=== PATIENT | male | born 1970 | race Caucasian/White ===

== ENCOUNTER → 2017-03-13 | Outpatient (CLI) | payer BC ==
[~2017-03-13] MED LIST: LSN/10125 PO
--- NOTE | 2017-03-13 18:12 | DIAGNOSTIC IMAGING REPORT ---
KUB CLINICAL HISTORY: R31.9 Hematuria COMPARISON STUDY: 08/03/2016 FINDINGS: There is a cluster of calcifications projected over the lower pole the left kidney measuring 6 mm in aggregate. These remain similar to the prior study. There is no pathologic bowel dilatation. There is stool present within the rectosigmoid and right colon. IMPRESSION: Left-sided nephrolithiasis similar to the preceding July 2016 study Electronically signed by: Warner Fung M.D. 03/13/2017 6:10 PM Dictated Date/Time: 03/13/2017 6:09 PM
== END | disposition home or self-care (01) ==
LOC: C.RAD 17:50
PROVIDERS: ATTEND Urology
DX: R31.9 Hematuria, unspecified (principal); N20.0 Calculus of kidney

== ENCOUNTER → 2017-06-14 | Outpatient (CLI) | payer BC ==
[2017-06-14 09:52] LABS: BLOOD UREA NITROGEN 21 mg/dl (7-18); BUN/CREATININE RATIO 20.7 (10-20); CALCIUM 8.9 mg/dl (8.5-10.1); CARBON DIOXIDE 25 mmol/L (21-32); CHLORIDE 107 mmol/L (98-107); GLUCOSE 97 mg/dl (70-99); POTASSIUM 3.7 mmol/L (3.5-5.1); SODIUM 138 mmol/L (136-145)
== END | disposition home or self-care (01) ==
LOC: C.LAB 07:07
PROVIDERS: ATTEND Family Medicine
DX: I10 Essential (primary) hypertension (principal)

== ENCOUNTER → 2017-09-11 | Outpatient (CLI) | payer BC ==
--- NOTE | 2017-09-11 19:19 | DIAGNOSTIC IMAGING REPORT ---
KUB CLINICAL HISTORY: Nephrolithiasis. COMPARISON STUDY: CT of the abdomen and pelvis August 16, 2016 and KUB March 13, 2017 FINDINGS: Clustered calculi within lower pole of the left kidney measuring up to 7 mm are again noted. These have slightly increased in size since exam of March 13, 2017. No ureteral calculi are identified on this exam. No right renal calculi are identified although the right renal shadow is partially obscured by stool. IMPRESSION: 1. Slight increase in size of clustered calculi within the lower pole of the left kidney. 2. No ureteral calculi. Electronically signed by: Aman Petty M.D. 09/11/2017 7:18 PM Dictated Date/Time: 09/11/2017 7:16 PM
== END | disposition home or self-care (01) ==
LOC: C.RAD 17:34
PROVIDERS: ATTEND Nurse Practitioner Family
DX: N20.0 Calculus of kidney (principal)

== ENCOUNTER → 2017-10-25 | Outpatient (CLI) | payer BC ==
--- NOTE | 2017-10-25 17:59 | DIAGNOSTIC IMAGING REPORT ---
KUB CLINICAL HISTORY: URETERAL STONES nephrocalcinosis COMPARISON STUDY: 09/11/2017 FINDINGS: Fragmentation of the calcification lower aspect left kidney. At least 6 small fragments are now appreciated at the lower aspect left kidney. Right kidney is obscured by overlying bowel content. No significant calcification and or the course of the ureters. Bowel pattern is nonobstructive. IMPRESSION: 1. Somewhat progressive fragmentation of the calcifications lower pole left kidney. 2. No significant calcification over the course of the ureters. The above report was generated using voice recognition software. It may contain grammatical, syntax or spelling errors. Electronically signed by: Calixto Rutledge M.D. 10/25/2017 5:57 PM Dictated Date/Time: 10/25/2017 5:55 PM
== END | disposition home or self-care (01) ==
LOC: C.RAD 17:24
PROVIDERS: ATTEND Nurse Practitioner Adult Health
DX: N20.1 Calculus of ureter (principal)

== ENCOUNTER → 2017-10-25 | Outpatient (CLI) | payer BC ==
[2017-10-25 09:52] LABS: CHOLESTEROL/HDL RATIO 4.3
[2017-10-26 17:53] LABS: GAMMA GLOBULIN 1.1 G/DL (0.8-1.7); IMMUNOFIXATION IGA SERUM 202 MG/DL (81-463); IMMUNOFIXATION IGG SERUM 1268 MG/DL (694-1618); IMMUNOFIXATION IGM SERUM 79 MG/DL (48-271); TOTAL PROTEIN 6.8 G/DL (6.2-8.3)
== END | disposition home or self-care (01) ==
LOC: C.LAB 07:19
PROVIDERS: ATTEND Family Medicine
DX: E78.5 Hyperlipidemia, unspecified (principal); R79.9 Abnormal finding of blood chemistry, unspecified

== ENCOUNTER → 2017-11-07 | Outpatient (CLI) | payer BC ==
[~2017-11-07] MED LIST changes: +CALC625T35 PO; +HYDR-5688 PO; +MULT-506 PO; +PROB1TAB16 PO
--- NOTE | 2017-11-07 16:44 | DIAGNOSTIC IMAGING REPORT ---
CHEST 2 VIEWS ROUTINE CLINICAL HISTORY: Preoperative evaluation. Nephrolithiasis. COMPARISON STUDY: Chest radiograph August 20, 2015. FINDINGS: Lung volumes are normal. No pneumothorax or pleural effusion is present. Pulmonary vascularity is normal. No consolidation is identified. Cardiomediastinal silhouette is normal. The appearance of the chest is unchanged. IMPRESSION: No acute cardiopulmonary findings. Electronically signed by: Aman Petty M.D. 11/07/2017 4:43 PM Dictated Date/Time: 11/07/2017 4:41 PM
== END | disposition home or self-care (01) ==
LOC: C.CPL 16:12
PROVIDERS: ATTEND Urology
DX: N20.0 Calculus of kidney (principal)

== ENCOUNTER → 2017-11-07 | Outpatient (CLI) | payer BC | END | disposition home or self-care (01) | LOC: C.LABSPEC 17:14 | PROVIDERS: ATTEND Urology | DX: N20.0 Calculus of kidney (principal) ==

== ENCOUNTER → 2017-11-10 | Day surgery (SDC) | payer BC ==
[2017-11-09 08:49] VITALS: Ht 180.3 cm; Wt 93.2 kg
[~2017-11-10] VITALS: Ht 180.3 cm; Wt 93.2 kg
[~2017-11-10] MED LIST changes: +CIPROFLOXACIN 400MG / D5W IV SCH; +DEXAMETHASONE SOD INJ 4 MG/ML VIAL ONE; +FENTANYL CITRATE INJ 50 MCG/1 ML 2 ML VIAL ONE; +LACTATED RINGER'S 1000ML 1,000 ML IV SCH; +LIDOCAINE HCL 2% 2 ML VIAL (20MG/ML) ONE; +MIDAZOLAM HCL 1 MG/ML 2ML VIAL ONE; +ONDANSETRON INJ 2 MG/ML 2 ML VIAL ONE; +OXYCODONE/ACETAMINOPHEN 5-325 TAB PO PRN; +PROPOFOL IV EMULSION 10 MG/ML 20 ML VIAL IV ONE; +SODIUM CHLORIDE 0.9% 1000ML 1,000 ML IV SCH
--- NOTE | 2017-11-10 09:30 | DIAGNOSTIC IMAGING REPORT ---
KUB HISTORY: Follow-up study in a patient with left-sided nephrolithiasis N20.0 [id number] COMPARISON: KUB 10/25/2017 FINDINGS: The bowel gas pattern is non-obstructive. There is no organomegaly. Left-sided nephrolithiasis redemonstrated with approximately 5 calculi seen within the distribution of the left kidney. Previously, there was a cluster of approximately 6 calculi in a focal cluster and today there are 4 calculi seen within this distribution with a single calculus noted superolaterally approximately 1.6 cm. No definite right-sided nephrolithiasis or ureteral calculi. No pneumoperitoneum or pneumatosis. No fracture. IMPRESSION: Left-sided nephrolithiasis as above without ureteral calculi or right-sided nephrolithiasis identified. Electronically signed by: Arturo Lopez M.D. 11/10/2017 9:29 AM Dictated Date/Time: 11/10/2017 9:25 AM
--- NOTE | 2017-11-10 10:30 | History & Physical Bridge Note ---
H&P Re-Evaluation Bridge Note: I have examined the patient, reviewed the History & Physical and in the interval since the performance of the History & Physical I have noted the following changes of clinical significance: No changes noted
--- NOTE | 2017-11-10 11:10 | Discharge Instructions-SurgCtr ---
Discharge Instructions Date of Service Nov 10, 2017. Visit Reason for Visit: Stones Discharge Discharge Diagnosis / Problem: stones Discharge Goals Goal(s): Decrease discomfort, Improve function, Increase independence, Improve disease control Medications Stopped Medications Name(s): Pt. was told not to take his Lisinopril this a.m.. Activity Recommendations Activity Limitations: resume your previous activity Lifting Limitations: none Exercise/Sports Limitations: none May Resume Sexual Activity: when tolerated Shower/Bathe: no limitations Driving or Machine Use: no limitations Anesthesia . Post Anesthesia Instructions: If you have had General Anesthesia or IV Sedation: * Do not drive today. * Resume driving when surgeon permits. * Do not make important decisions or sign legal documents today. * Call surgeon for: 1. Temperature elevations greater than 101 degrees F. 2. Uncontrollable pain. 3. Excessive bleeding. 4. Persistent nausea and vomiting. 5. Medication intolerance (nausea, vomiting or rash). * For nausea and vomiting use only clear liquids such as: tea, soda, bouillon until nausea subsides, then gradually increase diet as tolerated. * If you have any concerns or questions, call your surgeon's office. If physician is unavailable and it is an emergency, call 911 or go to the nearest emergency room. . Instructions / Follow-Up Instructions / Follow-Up please keep your previously scheduled follow up appointment Diet Recommendations Home Diet: no limitations Procedures Procedures Performed: Left Extracorporeal Shock Wave Lithotripsy Pending Studies Studies pending at discharge: no Medical Emergencies . Who to Call and When: Medical Emergencies: If at any time you feel your situation is an emergency, please call 911 immediately. . Non-Emergent Contact Non-Emergency issues call your: Urologist Call Non-Emergent contact if: you have a fever, temperature is above 101.5, your pain is not controlled, your pain is worsening . . "Provider Documentation" section prepared by Josh Parkinson. . [place] Drug Monitoring Program Search Results: patient reviewed within database, no issues identified
--- NOTE | 2017-11-10 11:11 | [facility] Operative Report ---
Operative Report Operative Date Nov 10, 2017. Pre-Operative Diagnosis Left Renal Stones Post-Operative Diagnosis Same Procedure(s) Performed Left Extracorporeal Shock Wave Lithotripsy Surgeon Dr. Mona Cheek Mining Technician Surgeon(s) None Estimated Blood Loss 0 mL Findings Numerous stones in the left lower pole other stones in the renal pelvis and midpole Specimens None Drains none Anesthesia Gen. Complication(s) None Disposition Recovery Room / PACU (stable) Indications Symptomatic left renal stones Description of Procedure The patient was identified in the preoperative holding area, appropriate informed consent was reviewed and completed and the patient was transported to the operating suite. Upon arrival appropriate preoperative antibiotics were administered and general anesthesia induced. The patient was placed in supine position and the stone was localized under fluoroscopy. A total of 2500 shocks were delivered to the stone. There appeared to be good fragmentation of the stone. Details of this procedure can be found on the [facility] information sheet. At the conclusion of the case the patient was extubated and taken to the PACU in stable condition. There were no complications. I attest to the content of the Intraoperative Record and any orders documented therein. Any exceptions are noted below.
[2017-11-10 12:03] VITALS: TEMP 36.7
[2017-11-10 12:31] VITALS: BP 157/114; PULSE 69; O2SAT 100
--- NOTE | 2017-11-10 12:46 | Anesthesia Progress Nt - [facility] ---
Anesthesia Post Op Note Date & Time Nov 10, 2017 at 12:46 Vital Signs Pain Intensity: 0 Vital Signs Past 12 Hours Date Time Temp Pulse Resp B/P (MAP) Pulse Ox O2 Delivery O2 Flow Rate FiO2 11/10/17 12:31 69 18 157/114 (128) 100 Room Air 11/10/17 12:03 36.7 73 18 159/105 (123) 100 Room Air 11/10/17 11:56 145/101 11/10/17 11:55 146/103 11/10/17 11:52 77 16 98 11/10/17 11:52 75 16 11/10/17 11:51 149/102 11/10/17 11:50 78 25 11/10/17 11:50 78 25 98 11/10/17 11:47 130/96 11/10/17 11:46 143/104 11/10/17 11:45 69 24 11/10/17 11:45 68 24 98 11/10/17 11:43 36.6 68 16 30/88 99 Room Air 11/10/17 11:41 130/88 11/10/17 11:40 72 30 11/10/17 11:40 71 30 98 11/10/17 11:36 139/96 11/10/17 11:35 70 22 11/10/17 11:35 70 22 98 11/10/17 11:31 130/95 11/10/17 11:30 73 17 99 11/10/17 11:30 74 17 11/10/17 11:26 115/81 11/10/17 11:25 36.7 74 16 115/81 99 Mask 8 11/10/17 11:25 81 19 98 11/10/17 11:25 80 19 11/10/17 09:46 36.5 83 20 157/98 (117) 98 Room Air Notes Mental Status: alert / awake / arousable, participated in evaluation Pt Amnestic to Procedure: Yes Nausea / Vomiting: adequately controlled Pain: adequately controlled Airway Patency, RR, SpO2: stable & adequate BP & HR: stable & adequate Hydration State: stable & adequate Anesthetic Complications: no major complications apparent
== END | disposition home or self-care (01) ==
LOC: X.SURG 09:05
PROVIDERS: ATTEND Urology
DX: N20.0 Calculus of kidney (principal); I10 Essential (primary) hypertension; E78.5 Hyperlipidemia, unspecified; Z98.49 Cataract extraction status, unspecified eye; Z98.890 Other specified postprocedural states; Z82.49 Family history of ischemic heart disease and other diseases of the circulatory system; Z80.42 Family history of malignant neoplasm of prostate

== ENCOUNTER → 2017-12-04 | Outpatient (CLI) | payer OTHER ==
[~2017-12-04] MED LIST changes: -CIPROFLOXACIN 400MG / D5W IV SCH; -DEXAMETHASONE SOD INJ 4 MG/ML VIAL ONE; -FENTANYL CITRATE INJ 50 MCG/1 ML 2 ML VIAL ONE; -LACTATED RINGER'S 1000ML 1,000 ML IV SCH; -LIDOCAINE HCL 2% 2 ML VIAL (20MG/ML) ONE; -MIDAZOLAM HCL 1 MG/ML 2ML VIAL ONE; -ONDANSETRON INJ 2 MG/ML 2 ML VIAL ONE; -OXYCODONE/ACETAMINOPHEN 5-325 TAB PO PRN; -PROPOFOL IV EMULSION 10 MG/ML 20 ML VIAL IV ONE; -SODIUM CHLORIDE 0.9% 1000ML 1,000 ML IV SCH
--- NOTE | 2017-12-04 18:59 | DIAGNOSTIC IMAGING REPORT ---
KUB CLINICAL HISTORY: Nephrolithiasis. FINDINGS: 2 AP supine abdominal radiographs are compared to study dated 11/10/2017 and correlated with abdominal CT dated 08/16/2016. There is a nonobstructed abdominal bowel gas pattern noting moderate colonic fecal retention. There are least 4 nonobstructing left renal calculi which measure up to 4 mm. A calcification projects over the left proximal ureter just above the transverse process of L3. This may represent a ureteral stone. No right renal calculi are clearly identified. The bony structures appear intact. IMPRESSION: 1. There are least 4 nonobstructing left renal calculi as above. 2. Suspect an obstructing left proximal ureteral stone. Correlate clinically for evidence of left flank pain. Electronically signed by: Mihai Rivera M.D. 12/04/2017 6:58 PM Dictated Date/Time: 12/04/2017 6:56 PM
== END | disposition home or self-care (01) ==
LOC: C.RAD 17:47
PROVIDERS: ATTEND Urology
DX: N20.0 Calculus of kidney (principal)

== ENCOUNTER → 2018-03-12 | Outpatient (CLI) | payer OTHER ==
--- NOTE | 2018-03-12 18:24 | DIAGNOSTIC IMAGING REPORT ---
KUB HISTORY: Follow-up study in a patient with left-sided kidney stones Z00.00 Health Maintenance COMPARISON: KUB 12/04/2017 FINDINGS: The bowel gas pattern is non-obstructive. There is no organomegaly. On prior study there were 4 nonobstructing calculi projecting over the inferior pole left kidney. On today's study there are only 3 present. Additionally, there is a 4 mm calculus within the expected location of the proximal left ureter between the L2 and L3 transverse processes. A calcification is also seen within this region on comparison study. No pneumoperitoneum or pneumatosis. No fracture. IMPRESSION: 1. Nonobstructive bowel gas pattern. 2. On prior study there were four nonobstructing calculi projecting over the inferior pole left kidney. On today's study there are only three present. Additionally, there is a 4 mm calcification within the expected location of the proximal left ureter suggesting ureteral calculus. Electronically signed by: Arturo Lopez M.D. 03/12/2018 6:22 PM Dictated Date/Time: 03/12/2018 6:20 PM
== END | disposition home or self-care (01) ==
LOC: C.RAD 17:32
PROVIDERS: ATTEND Urology
DX: Z00.00 Encounter for general adult medical examination without abnormal findings (principal); N20.0 Calculus of kidney

== ENCOUNTER 2018-10-06 20:39 | Inpatient (IN) ==
[2018-10-06] MEDS ORDERED: KETOROLAC TROMETHAMINE 15 MG/ML VIAL IV STA (20:51)
[2018-10-06] MEDS ORDERED: ONDANSETRON 4 MG TAB PO STA (20:51)
[2018-10-06] MEDS ORDERED: FAMOTIDINE 20MG/5ML IV PUSH IV STA (20:51)
[2018-10-06] MEDS ORDERED: MoRPHine SULFATE 4 MG/ML 1 ML CARP\\VIAL IV STA (20:51)
[2018-10-06] MEDS ORDERED: ONDANSETRON 4 MG OD TAB ONE (20:56)
[2018-10-06] MEDS ORDERED: SODIUM CHLORIDE 0.9% 1000ML 1,000 ML IV SCH ×2 (21:00→22:00)
[2018-10-06 21:20] LABS: Basophils # (auto) 0.01 K/uL (0-0.2); Basophils % (auto) 0.1 %; Eosinophils # (auto) 0.08 K/uL (0-0.5); Eosinophils % (auto) 0.6 %; Hematocrit (blood only) 40.8 % (42-52); Hemoglobin 14.2 g/dL (14.0-18.0); Immature Granulocytes # (auto) 0.04 K/uL (0.00-0.02); Immature Granulocytes % (auto) 0.3 %; Lymphocytes # (auto) 1.64 K/uL (1.2-3.4); Lymphocytes % (auto) 13.1 %; Mean Corpuscular Hgb Conc 34.8 g/dL (32-36); Mean Corpuscular Volume 82.9 fL (80-100); Monocytes # (auto) 0.99 K/uL (0.11-0.59); Monocytes % (auto) 7.9 %; Neutrophils # (auto) 9.78 K/uL (1.4-6.5); Platelet Count 245 K/uL (130-400); Red Blood Count 4.92 M/uL (4.7-6.1); White Blood Count 12.54 K/uL (4.8-10.8)
[2018-10-06 21:21] LABS: Appearance Urine Clear (Clear); Bacteria Urine Automated Negative (Negative); Bilirubin Urine Negative (Negative); Cast Urine Automated 0 /lpf (0-5); Color Urine Yellow; Epithelial Cell Urine Auto 0-5 /lpf (0-5); Glucose Urine UA Negative (Negative); Ketones Urine Trace (Negative); Leukocyte Esterase Urine Negative (Negative); Nitrite Urine Negative (Negative); Protein Urine Negative (Negative); Specific Gravity Urine 1.027 (1.000-1.030); Urobilinogen Urine Negative (Negative)
[2018-10-06 21:37] LABS: Alanine Aminotransferase 25 U/L (12-78); Albumin Level 4.1 gm/dl (3.4-5.0); Aspartate Aminotransferase 14 U/L (15-37); Blood Urea Nitrogen 22 mg/dl (7-18); Calcium 9.1 mg/dl (8.5-10.1); Carbon Dioxide 24 mmol/L (21-32); Chloride 101 mmol/L (98-107); Est GFR (African American) 44.1; Est GFR (Non-African American) 38.1; Glucose 121 mg/dl (70-99); Potassium 3.4 mmol/L (3.5-5.1); Sodium 135 mmol/L (136-145)
[2018-10-06 21:45] LABS: Alkaline Phosphatase 62 U/L (45-117); Bilirubin,Total 1.1 mg/dl (0.1-1); Globulin 4.1 gm/dl (2.5-4.0); Total Protein 8.2 gm/dl (6.4-8.2); Troponin I < 0.015 ng/ml (0-0.045)
--- NOTE | 2018-10-06 22:24 | Emergency Department Note ---
Entered by Candelaria Hallman acting as a scribe for History of Present Illness General Chief complaint: Kidney Stone Stated complaint: KIDNEY STONES Time Seen by Provider: 10/06/18 20:46 Source: patient and family () Mode of arrival: ambulatory Limitations: no limitations History of Present Illness Provider complaint: Kidney stone Onset (ago): day(s) 2 Location: abdomen (left flank) and hip (left) Radiation: non-radiation Pain Consistency: + other (worsening) Maximum Pain Intensity: 4 Quality: + other (kidney stone) Relieved By: + none Associated symptoms: + nausea/vomiting and + other (Additional symptoms: left hip pain) The patient is a 47 year old male who presents to the Emergency Room with complaints of worsening kidney stones starting 2 days ago. The patient reports that he was in the ER 2 days ago when he was diagnosed with 3 kidney stones in his left kidney. He states that he was given pain medication and Toradol, among other treatments, and he notes that they helped to alleviate his pain. The patient reports that he was sent home with Oxycodone and Zofran, but that he has been nauseous and vomiting since, so he has stopped taking the Oxycodone and has been taking Tylenol instead. He notes that his pain is located on his left hip and that he has not been eating or drinking secondary to his nausea. Per , the patient's temperature has also slowly been increasing, and his latest temperature was 98.34. The patient notes that he spoke to Dr. Cheek about his symptoms this afternoon and was told to report to the ED if his symptoms do not improve. He reports that he had to have a kidney stone removed many years ago, and he denies a family history of kidney stones. Home Medications Home Medications Medication Instructions Recorded Confirmed Type Fish Oil Gummies 1 tab PO DAILY 10/04/18 10/06/18 History Lactobacillus acidophilus 2 tabs PO DAILY 10/04/18 10/06/18 History [Probiotic] inulin [Fiber Gummies] 4 g PO DAILY 10/04/18 10/06/18 History lisinopril-hydrochlorothiazide 0.5 tab PO DAILY 10/04/18 10/06/18 History multivitamin 1 tab PO DAILY 10/04/18 10/06/18 History acetaminophen [Tylenol Extra 1,000 mg PO Q6H PRN 10/06/18 10/06/18 History Strength] ondansetron HCl [Zofran] 4 mg PO QID PRN 10/06/18 10/06/18 History Allergies Allergy/AdvReac Type Severity Reaction Status Date / Time No Known Allergies Allergy Verified 10/06/18 21:28 Past Med/Surg History Family History Other Hypertension Social History current occupational status: employed Feels Safe at Home: Yes Smoking Status: Never smoker Preferred Language: Albanian Review of Systems See HPI for pertinent positives & negatives. and A total of 10 systems reviewed and were otherwise negative Physical Exam Vital Signs Vital Signs - 24 hr 10/06/18 20:41 Temperature 37.0 C Temperature Source Oral Sepsis Recent Fever Within 48 Hours No Sepsis Action Taken by Nursing No Action Required Pulse Rate 83 Respiratory Rate 18 Respiratory Effort / Characteristics Non-Labored Spontaneous Respiratory Depth Normal Blood Pressure 161/97 H Blood Pressure Mean 118 Pulse Oximetry 98 Oxygen Delivery Method Room Air GENERAL: Awake, alert, well-appearing, in no distress HENT: Normocephalic, atraumatic. Dry lips. EYES: Normal conjunctiva. Sclera non-icteric. NECK: Supple. No nuchal rigidity. Trachea midline RESPIRATORY: Clear to auscultation. No wheezes. Normal respiratory effort. CARDIAC: Normal rate. Normal rhythm. Extremities warm and well perfused. GI: Soft, non-distended. No tenderness to palpation. No rebound or guarding. No masses. RECTAL: Deferred. MUSCULOSKELETAL: Atraumatic. Chest examination reveals no tenderness. Mild left flank tenderness. LOWER EXTREMITIES: Calves are equal size bilaterally and non-tender. No edema NEURO: Normal sensorium. No sensory or motor deficits noted. No facial droop. SKIN: Warm and dry. No rash or jaundice noted. Course 2046: Past medical records reviewed. The patient was evaluated in room A2, and a complete history and physical examination were performed. 2146: I updated the patient at this time and paged urology for him. 2149: I reviewed the patient's case with Dr. Cheek - Urology, [facility]. Dr. Cheek recommends admission and NPO at midnight. 2151: I reviewed the patient's case with Dr. Mccarthy - Hospitalist, [facility]. Dr. Mccarthy will evaluate the patient for further management. Consultations Consultation #1: I reviewed the patient's case with Dr. Cheek - Urology, [facility]. Dr. Cheek recommends admission and NPO at midnight. Time: 21:50 Consultation #2: I reviewed the patient's case with Dr. Mccarthy - Hospitalist, [facility]. Dr. Mccarthy will evaluate the patient for further management. Time: 21:52 Administered Medications Discontinued Medications Famotidine (Pepcid 20mg Iv Push) 20 mg IV ONE STA Stop: 10/06/18 20:52 Last Admin: 10/06/18 21:04 Dose: 20 mg Sodium Chloride (Nss 1000ml) 1,000 mls @ 999 mls/hr IV .Q1H1M [place] Stop: 10/06/18 22:00 Last Infusion: 10/06/18 22:17 Dose: 0 mls/hr Admin: 10/06/18 21:04 Dose: 999 mls/hr Ketorolac Tromethamine (Toradol) 15 mg IV NOW STA Stop: 10/06/18 20:52 Last Admin: 10/06/18 21:04 Dose: 15 mg Morphine Sulfate (Morphine Sulfate) 4 mg IV NOW STA Stop: 10/06/18 20:52 Last Admin: 10/06/18 21:04 Dose: 4 mg Ondansetron HCl (Zofran) 4 mg PO NOW STA Stop: 10/06/18 20:52 Last Admin: 10/06/18 21:05 Dose: Not Given Ondansetron HCl (Zofran Odt) Confirm Administered Dose 4 mg .ROUTE .STK-MED ONE Stop: 10/06/18 20:57 Last Admin: 10/06/18 21:04 Dose: 4 mg 2200: Ordered Sodium Chloride 1000 mls @ 125 mls/hr IV. Medical Decision Making Differential Diagnosis Differential diagnosis: Etiologies such as appendicitis, diverticulitis, PUD, biliary pathology, UTI, pancreatitis, obstruction, mesenteric ischemia, aortic pathology, infections, inflammatory bowel disease, renal colic, as well as others were entertained. Medical Records Attestation: I reviewed the patient's medical records. Home Medications Current Medication List: was personally reviewed by me Laboratory Data Attestation: I reviewed the patient's lab results. Result diagrams: 10/06/18 21:00 10/06/18 21:00 Lab Results 10/06/18 10/06/18 10/06/18 Range/Units 21:00 21:00 21:00 WBC 12.54 H (4.8-10.8) K/uL RBC 4.92 (4.7-6.1) M/uL Hgb 14.2 (14.0-18.0) g/dL Hct 40.8 L (42-52) % MCV 82.9 (80-100) fL MCH 28.9 (25-34) pg MCHC 34.8 (32-36) g/dL RDW Std Deviation 39.0 (36.4-46.3) fL RDW Coeff of Alley 13.0 (11.5-14.5) % Plt Count 245 (130-400) K/uL MPV 10.0 (7.4-10.4) fL Immature Gran % (Auto) 0.3 % Neut % (Auto) 78.0 % Lymph % (Auto) 13.1 % [place] % (Auto) 7.9 % Eos % (Auto) 0.6 % Baso % (Auto) 0.1 % Immature Gran # (Auto) 0.04 H (0.00-0.02) K/uL Neut # (Auto) 9.78 H (1.4-6.5) K/uL Lymph # (Auto) 1.64 (1.2-3.4) K/uL [place] # (Auto) 0.99 H (0.11-0.59) K/uL Eos # (Auto) 0.08 (0-0.5) K/uL Baso # (Auto) 0.01 (0-0.2) K/uL Sodium 135 L (136-145) mmol/L Potassium 3.4 L (3.5-5.1) mmol/L Chloride 101 (98-107) mmol/L Carbon Dioxide 24 (21-32) mmol/L Anion Gap 10.0 (3-11) BUN 22 H (7-18) mg/dl Creatinine 2.00 H D (0.6-1.4) mg/dl Est Cr Clr Drug Dosing 53.0 ml/min Est GFR ( Amer) 44.1 Est GFR (Non-Af Amer) 38.1 BUN/Creatinine Ratio 11.0 (10-20) Glucose 121 H (70-99) mg/dl Calcium 9.1 (8.5-10.1) mg/dl Total Bilirubin 1.1 H D (0.1-1) mg/dl AST 14 L (15-37) U/L ALT 25 (12-78) U/L Alkaline Phosphatase 62 (45-117) U/L Troponin I < 0.015 (0-0.045) ng/ml Total Protein 8.2 (6.4-8.2) gm/dl Albumin 4.1 (3.4-5.0) gm/dl Globulin 4.1 H (2.5-4.0) gm/dl Albumin/Globulin Ratio 1.0 (0.9-2) Lipase 132 (73-393) U/L Urine Color Yellow Urine Appearance Clear (Clear) Urine pH 5.0 (4.5-7.5) Ur Specific [place] 1.027 (1.000-1.030) Urine Protein Negative (Negative) Urine Glucose (UA) Negative (Negative) Urine Ketones Trace H (Negative) Urine Blood 2+ H (Negative) Urine Nitrite Negative (Negative) Urine Bilirubin Negative (Negative) Urine Urobilinogen Negative (Negative) Ur Leukocyte Esterase Negative (Negative) Urine WBC (Auto) 1-5 (0-5) /hpf Urine RBC (Auto) 5-10 H (0-4) /hpf U Hyaline Cast (Auto) 0 (0-5) /lpf U Epithel Cells (Auto) 0-5 (0-5) /lpf Urine Bacteria (Auto) Negative (Negative) ECG Data Attestation: I personally reviewed and interpreted this ECG as follows: Indication: other (kidney stone) Rate (beats per minute): 78 Rhythm: normal sinus Findings: + other (normal axis, normal intervals, nonspecific aVL T wave change) ; no PVC, no ST depression and no ST elevation Comparison ECG Date: from (11/07/17) Change: no significant change Blood Pressure Blood Pressure Findings: Elevated blood pressure Blood Pressure Disposition: elevated BP felt to be situational MDM Narrative 47-year-old gentleman with history of kidney stone seen here several days ago with 3 left ureteral kidney stones presenting today complaining of worsening pain with significant nausea and vomiting. No new trauma. Has been in contact with urology. States the pain medicine at home is been very nauseous and unable to keep down the oxycodone. Is been using some Tylenol with minimal help. Feels that he is getting dehydrated. Basic labs are completed. No evidence of UTI. Creatinine has increased concerning given his decreased oral intake and kidney stones. Recent CT and do not believe additional repeat imaging is needed. Doubt perforation obstruction appendicitis cholecystitis, hepatitis, or pancreatitis. Did complete a EKG and troponin without acute findings. Patient medicated with morphine, Zofran, IV fluid, Pepcid, and Toradol here. Had some improvement but creatinine does appear to be elevated at 2.0 today. No evidence of UTI. Discussed with urology who recommended admission n.p.o. at midnight and they will intervene tomorrow on his kidney stones. Discussed with the hospitalist for admission. Patient agrees with this plan. Impression & Plan Left nephrolithiasis, Acute kidney injury Discharge Plan Visit Data Chief Complaint: Kidney Stone Stated Complaint: KIDNEY STONES ED Provider: Alexandre Farrell Discharge Problem: Left nephrolithiasis, Acute kidney injury Patient Disposition: Admitted As Inpatient Forms Stand Alone Forms: My [facility] Prescriptions Prescriptions: No Action multivitamin Tablet 1 tab PO DAILY RF: 0 lisinopril-hydrochlorothiazide 10-12.5 mg Tablet 0.5 tab PO DAILY RF: 0 Lactobacillus acidophilus [Probiotic] 10 billion cell Capsule 2 tabs PO DAILY RF: 0 inulin [Fiber Gummies] 2 gram Tablet,Chewable 4 g PO DAILY RF: 0 Fish Oil Gummies 1 tab PO DAILY RF: 0 ondansetron HCl [Zofran] 4 mg Tablet 4 mg PO QID PRN (Reason: Nausea) RF: 0 acetaminophen [Tylenol Extra Strength] 500 mg Tablet 1,000 mg PO Q6H PRN (Reason: Pain) RF: 0 Referrals Referrals: Yung Mckinley DO [Primary Care Provider] - The scribe's documentation has been prepared under my direction and personally reviewed by me in its entirety. I confirm that the note above accurately reflects all work, treatment, procedures, and medical decision making performed by me.
[2018-10-06] MEDS ORDERED: DOCUSATE SODIUM 100 MG CAP PO PRN (23:09)
[2018-10-06] MEDS ORDERED: POLYETHYLENE (MIRALAX) 17 GM PACK PO PRN (23:09)
[2018-10-06] MEDS ORDERED: ONDANSETRON INJ 2 MG/ML 2 ML VIAL IV PRN (23:09)
[2018-10-06] MEDS ORDERED: HYDROmorphone INJ 1 MG/ML SYRINGE IV PRN (23:09)
[2018-10-06] MEDS: SODIUM CHLORIDE 0.9% 500 ML IV SCH (23:15)
[2018-10-06 23:32] LABS: Magnesium 2.3 mg/dl (1.8-2.4); Phosphorus 2.5 mg/dl (2.5-4.9)
[2018-10-07] MEDS ORDERED: HydrALAZINE HCL 20 MG/ML VIAL IV PRN (00:48)
--- NOTE | 2018-10-07 01:05 | History & Physical Report ---
Date of Service October 06, 2018 Assessment & Plan (1) Left nephrolithiasis: Admit to medical floor. Patient with mild increase in Cr to 2 (from 1.69 from 1.05) * Strain urine * Pain control with Dilaudid PRN * Nausea control with Zofran PRN * IVF * Urology consultation - appreciate assistance with this case * Patient is NPO after midnight for possible intervention in AM * Monitor BUN, Cr and electrolytes * Monitor UOP (2) HTN (hypertension): Blood pressure elevated at present. * Hold Lisinopril/HCTZ in setting of mild MERLIN * Hydralazine PRN F/E/N - NSS at 125mL/hr x 2 liters Monitor electrolytes and replete as needed. NPO for now Ppx - low risk for DVT. Code - FUll Dispo - admit to medical floor History of Present Illness Chief Complaint: abdominal pain Primary Care Provider: Yung Mckinley DO Patient is a 47yo C male with history of HTN, prior renal stones presenting with left sided abdominal pain and ureteral calculi. Patient was seen in the ER 2 nights ago with abdominal pain. CT was done at that time that showed moderate left sided hydroureteronephrosis secondary to three left ureteral calculi, largest of which was 6mm. He was given oxycodone and discharged home with plans to followup with Urology. Patient with worsening pain, nausea and some decreased UOP. He contacted Dr. Cheek and was instructed to come to the ER ER Course: Pepcid, Toradol, Morphine, Zofran , IVF Allergies Allergy/AdvReac Type Severity Reaction Status Date / Time No Known Allergies Allergy Verified 10/06/18 21:28 Home Medications Home Medications Medication Instructions Recorded Confirmed Type Fish Oil Gummies 1 tab PO DAILY 10/04/18 10/06/18 History Lactobacillus acidophilus 2 tabs PO DAILY 10/04/18 10/06/18 History [Probiotic] inulin [Fiber Gummies] 4 g PO DAILY 10/04/18 10/06/18 History lisinopril-hydrochlorothiazide 0.5 tab PO DAILY 10/04/18 10/06/18 History multivitamin 1 tab PO DAILY 10/04/18 10/06/18 History acetaminophen [Tylenol Extra 1,000 mg PO Q6H PRN 10/06/18 10/06/18 History Strength] ondansetron HCl [Zofran] 4 mg PO QID PRN 10/06/18 10/06/18 History Past Med/Surg History Medical History Renal colic (Acute) HTN (hypertension) (Chronic) Hypercholesteremia (Chronic) Kidney stone (Resolved) Left ureteral calculus (Acute) Surgical History H/O lithotripsy Family History Other Hypertension Social History Current Living Situation: Spouse current occupational status: employed Other Information That Helps Us Care for You: No Feels Safe at Home: Yes Safety Concerns: Feels Safe At This Time Smoking Status: Never smoker Hx Alcohol Use: No Hx Substance Use: No Beliefs That Will Affect Care: None Preferred Language: Italian Communication Ability: Effective 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 +Nausea Physical Exam 2 Vital Signs (Past 24 Hours): Last Vital Signs Temp 37.1 C 10/06/18 23:15 Pulse 73 10/06/18 23:15 Resp 18 10/06/18 23:15 BP 161/100 H 10/06/18 23:15 Pulse Ox 98 10/06/18 23:15 Physical Exam: General: patient resting comfortably, NAD, non-toxic in appearance, AA&O x 4 Skin: warm, dry, intact, no rashes or lesions HEENT: NC/AT, PERRL, EOMI, anicteric sclera, conjunctiva without injection, external ear normal to inspection and nontender, nares patent, moist mucus membranes, dentition intact, no oropharyngeal lesions, neck supple, trachea midline, no LAD, no thyromegaly, no JVD Heart: +S1/S2, regular, no m/r/g Lungs: equal air entry bilaterally, no rales/rhonchi/wheezes Abd: +BS, soft, tender in LLQ, no rebound/guarding Ext: warm, 2+ pulses in UE/LE bilaterally, no clubbing/cyanosis or edema Neuro: nonfocal, patient AA&O x 4, speech intact, no facial droop, moving all extremities on command with equal strength 5/5 Results & Data Laboratory Results Lab Results 10/06/18 10/06/18 10/06/18 Range/Units 21:00 21:00 21:00 WBC 12.54 H (4.8-10.8) K/uL RBC 4.92 (4.7-6.1) M/uL Hgb 14.2 (14.0-18.0) g/dL Hct 40.8 L (42-52) % MCV 82.9 (80-100) fL MCH 28.9 (25-34) pg MCHC 34.8 (32-36) g/dL RDW Std Deviation 39.0 (36.4-46.3) fL RDW Coeff of [place] 13.0 (11.5-14.5) % Plt Count 245 (130-400) K/uL MPV 10.0 (7.4-10.4) fL Immature Gran % (Auto) 0.3 % Neut % (Auto) 78.0 % Lymph % (Auto) 13.1 % [place] % (Auto) 7.9 % Eos % (Auto) 0.6 % Baso % (Auto) 0.1 % Immature Gran # (Auto) 0.04 H (0.00-0.02) K/uL Neut # (Auto) 9.78 H (1.4-6.5) K/uL Lymph # (Auto) 1.64 (1.2-3.4) K/uL [place] # (Auto) 0.99 H (0.11-0.59) K/uL Eos # (Auto) 0.08 (0-0.5) K/uL Baso # (Auto) 0.01 (0-0.2) K/uL Sodium 135 L (136-145) mmol/L Potassium 3.4 L (3.5-5.1) mmol/L Chloride 101 (98-107) mmol/L Carbon Dioxide 24 (21-32) mmol/L Anion Gap 10.0 (3-11) BUN 22 H (7-18) mg/dl Creatinine 2.00 H D (0.6-1.4) mg/dl Est Cr Clr Drug Dosing 53.0 ml/min Est GFR ( Amer) 44.1 Est GFR (Non-Af Amer) 38.1 BUN/Creatinine Ratio 11.0 (10-20) Glucose 121 H (70-99) mg/dl Calcium 9.1 (8.5-10.1) mg/dl Phosphorus 2.5 (2.5-4.9) mg/dl Magnesium 2.3 (1.8-2.4) mg/dl Total Bilirubin 1.1 H D (0.1-1) mg/dl AST 14 L (15-37) U/L ALT 25 (12-78) U/L Alkaline Phosphatase 62 (45-117) U/L Troponin I < 0.015 (0-0.045) ng/ml Total Protein 8.2 (6.4-8.2) gm/dl Albumin 4.1 (3.4-5.0) gm/dl Globulin 4.1 H (2.5-4.0) gm/dl Albumin/Globulin Ratio 1.0 (0.9-2) Lipase 132 (73-393) U/L Urine Color Yellow Urine Appearance Clear (Clear) Urine pH 5.0 (4.5-7.5) Ur Specific [place] 1.027 (1.000-1.030) Urine Protein Negative (Negative) Urine Glucose (UA) Negative (Negative) Urine Ketones Trace H (Negative) Urine Blood 2+ H (Negative) Urine Nitrite Negative (Negative) Urine Bilirubin Negative (Negative) Urine Urobilinogen Negative (Negative) Ur Leukocyte Esterase Negative (Negative) Urine WBC (Auto) 1-5 (0-5) /hpf Urine RBC (Auto) 5-10 H (0-4) /hpf U Hyaline Cast (Auto) 0 (0-5) /lpf U Epithel Cells (Auto) 0-5 (0-5) /lpf Urine Bacteria (Auto) Negative (Negative) Diagnostic Findings ABDOMEN AND PELVIS CT WITHOUT CONTRAST CT DOSE: 665.25 mGy.cm HISTORY: Acute left-sided flank pain with history of nephrolithiasis l flank pain TECHNIQUE: Multiaxial CT images of the abdomen and pelvis were performed without contrast. A dose lowering technique was utilized adhering to the principles of ALARA. COMPARISON STUDY: CT abdomen and pelvis 08/16/2016. FINDINGS: Lung bases appear generally clear. No pneumatosis or pneumoperitoneum identified. Coronary arterial calcifications are partially imaged. Indeterminate calcifications are noted about the right hepatic lobe. No intrahepatic biliary ductal dilation. Slightly decreased attenuation of the liver may reflect mild fatty infiltration. Gallbladder, spleen, pancreas and adrenal glands are unremarkable. Hypodense mass suggesting cyst involves the superior pole right kidney measuring up to 5.9 cm in greatest dimension. There is moderate left-sided hydroureteronephrosis with perinephric and periureteral inflammatory stranding secondary to 3 total left ureteral calculi. The most proximal calculus measures 5 x 4 x 4 mm and is seen at the level of the L2-L3 intervertebral disc space. This calculus abuts a 5 x 4 x 3 mm calculus, also the level of L2-L3. The most distal ureteral calculus measures 4 x 4 x 4 mm and is present at the level of L4-L5. There are two 4 mm nonobstructing calculi of the inferior pole left kidney. Right kidney, right ureter and urinary bladder appear unremarkable. Prostate is mildly enlarged with central coarse calcifications. Small fat filled left inguinal hernia. Mild calcification of the distal abdominal aorta without aneurysm. No adenopathy. IVC is unremarkable. No bowel obstruction or focal bowel wall thickening. Mild colonic diverticulosis without acute diverticulitis. Terminal ileum appears unremarkable. The soft tissues are within normal limits. Bones appear to be intact. Transitional lumbosacral anatomy with pseudoarticulation of the right transverse process L5 with the right sacral ala. IMPRESSION: 1. Moderate left-sided hydroureteronephrosis secondary to three left ureteral calculi as above measuring up to 6 mm . 2. Nonobstructing left nephrolithiasis. 3. Normal appendix. 4. Colonic diverticulosis without acute diverticulitis. 5. Additional findings as above. Electronically signed by: Arturo Lopez M.D. 10/04/2018 9:45 PM Dictated: 10/04/182136 Transcribed: 10/04/182136 ECG Additional Comments: NSR at 78bpm, normal axis and intervals, no ischemic changes Code Status & VTE Plan Code Status full VTE Prophylaxis Plan VTE Prophylaxis will be ordered: Yes Critical Care Time Critical Care Time: No _ (1) HTN (hypertension) Hypertension type: essential hypertension Qualified Code(s): I10 - Essential (primary) hypertension
[2018-10-07] MEDS: SODIUM CHLORIDE 0.9% 500 ML IV SCH (03:44)
[2018-10-07 05:49] LABS: Basophils # (auto) 0.01 K/uL (0-0.2); Basophils % (auto) 0.1 %; Eosinophils # (auto) 0.17 K/uL (0-0.5); Eosinophils % (auto) 1.6 %; Hematocrit (blood only) 37.6 % (42-52); Hemoglobin 13.4 g/dL (14.0-18.0); Immature Granulocytes # (auto) 0.04 K/uL (0.00-0.02); Immature Granulocytes % (auto) 0.4 %; Lymphocytes # (auto) 2.59 K/uL (1.2-3.4); Lymphocytes % (auto) 24.5 %; Mean Corpuscular Hgb Conc 35.6 g/dL (32-36); Mean Corpuscular Volume 83.6 fL (80-100); Mean Platelet Volume 9.8 fL (7.4-10.4); Monocytes # (auto) 1.07 K/uL (0.11-0.59); Monocytes % (auto) 10.1 %; Neutrophils # (auto) 6.68 K/uL (1.4-6.5); Neutrophils % (auto) 63.3 %; Platelet Count 206 K/uL (130-400); White Blood Count 10.56 K/uL (4.8-10.8)
[2018-10-07 06:20] LABS: BUN Creatinine Ratio 12.1 (10-20); Calcium 8.2 mg/dl (8.5-10.1); Creatinine Clr Calc Pharmacy 59.2 ml/min; Est GFR (African American) 50.4; Est GFR (Non-African American) 43.5; Potassium 3.5 mmol/L (3.5-5.1)
[2018-10-07] MEDS ORDERED: SODIUM CHLORIDE 0.9% 1000ML 1,000 ML IV SCH (07:15)
--- NOTE | 2018-10-07 08:40 | Anesthesiology Consultation ---
Date of Service October 07, 2018 Assessment & Plan (1) Encounter for pre-operative examination: Chart Review Chart Review: Acceptable Risk for Surgery and Patient NOT seen in Pre Admission Testing History Surgery Operation Date: 10/07/18 12:00 Proposed Procedures p Cystoscopy Retrograde - Josh Cheek MD Height/Weight Height: 1.8 m Weight: 96.8 kg Allergies Allergy/AdvReac Type Severity Reaction Status Date / Time No Known Allergies Allergy Verified 10/06/18 21:28 Medications Home Medications Medication Instructions Recorded Confirmed Last Taken Fish Oil Gummies 1 tab PO DAILY 10/04/18 10/06/18 10/04/18 Lactobacillus acidophilus 2 tabs PO DAILY 10/04/18 10/06/18 10/04/18 [Probiotic] inulin [Fiber Gummies] 4 g PO DAILY 10/04/18 10/06/18 10/06/18 lisinopril-hydrochlorothiazide 0.5 tab PO DAILY 10/04/18 10/06/18 10/06/18 multivitamin 1 tab PO DAILY 10/04/18 10/06/18 10/04/18 acetaminophen [Tylenol Extra 1,000 mg PO Q6H PRN 10/06/18 10/06/18 10/06/18 08: 00 Strength] ondansetron HCl [Zofran] 4 mg PO QID PRN 10/06/18 10/06/18 10/06/18 Active Medications Generic Name Dose Route Start Last Admin Trade Name Freq PRN Reason Stop Dose Admin Sodium Chloride 1,000 mls @ 80 mls/hr 10/07/18 07:15 10/07/18 07:32 Nss 1000ml IV 10/07/18 19:44 80 mls/hr .[id number] E[place] Administration Past Medical History Medical History Renal colic (Acute) HTN (hypertension) (Chronic) Hypercholesteremia (Chronic) Kidney stone (Resolved) Left ureteral calculus (Acute) GERD well controlled with probiotic. No n/v. Last dose of BP med was yesterday Past Family History Family History Other Hypertension Past Surgical History Surgical History H/O lithotripsy Left ESWL X 2. 09/04/2015 and 11/10/17: LMA #5 placed without complications Past Anesthesia History No Hx of Anesthesia Complications History of PONV No Motion Sickness Screening History of Motion Sickness: No Social History Smoking Status: Never smoker Hx Alcohol Use: No Hx Substance Use: No Exercise / Class Metabolic Activity II 4-5 Yardwork/Stairs/Walk up hill Physical Exam Vital Signs Last Vital Signs Temp 36.9 C 10/07/18 12:23 Pulse 91 H 10/07/18 12:23 Resp 18 10/07/18 12:23 BP 160/100 H 10/07/18 12:23 Pulse Ox 98 10/07/18 12:23 Testing Laboratory Results 10/07/18 05:22 10/07/18 05:22 Urine Color Yellow 10/06/18 21:00 Urine Appearance Clear (Clear) 10/06/18 21:00 Urine pH 5.0 (4.5-7.5) 10/06/18 21:00 Ur Specific [place] 1.027 (1.000-1.030) 10/06/18 21:00 Urine Protein Negative (Negative) 10/06/18 21:00 Urine Glucose (UA) Negative (Negative) 10/06/18 21:00 Urine Ketones Trace (Negative) H 10/06/18 21:00 Urine Nitrite Negative (Negative) 10/06/18 21:00 Ur Leukocyte Esterase Negative (Negative) 10/06/18 21:00 Urine WBC (Auto) 1-5 /hpf (0-5) 10/06/18 21:00 Urine RBC (Auto) 5-10 /hpf (0-4) H 10/06/18 21:00 U Hyaline Cast (Auto) 0 /lpf (0-5) 10/06/18 21:00 U Epithel Cells (Auto) 0-5 /lpf (0-5) 10/06/18 21:00 Urine Bacteria (Auto) Negative (Negative) 10/06/18 21:00 Electrocardiogram Date: 10/06/18 Findings: + NSR @ (44)
--- NOTE | 2018-10-07 09:26 | Urology Consultation ---
Date of Consultation October 07, 2018 Assessment & Plan (1) Left nephrolithiasis: obstructing left ureteral calculi - discussed options of trial of passage, ESWL, PCNL, or cysto/stent/URS/laser - would like to move forward with cysto, stent, URS, laser - risks, benefits, expectations reviewed - will cover with periop abx - plan for surgery today History of Present Illness Attending Physician: Jose Hallman MD, PhD, [facility] 47-year-old gentleman with a long history of nephrolithiasis and recent onset of left flank pain ER visit [address] revealing several small stones in the proximal left ureter Attempted spontaneous passage, however severe nausea and vomiting limited his ability to tolerate this Return to the ER last night Slight bump in his creatinine, borderline leukocytosis Pain controlled well overnight, nausea generally relieved with medications Allergies Allergy/AdvReac Type Severity Reaction Status Date / Time No Known Allergies Allergy Verified 10/06/18 21:28 Home Medications Home Medications Medication Instructions Recorded Confirmed Type Fish Oil Gummies 1 tab PO DAILY 10/04/18 10/06/18 History Lactobacillus acidophilus 2 tabs PO DAILY 10/04/18 10/06/18 History [Probiotic] inulin [Fiber Gummies] 4 g PO DAILY 10/04/18 10/06/18 History lisinopril-hydrochlorothiazide 0.5 tab PO DAILY 10/04/18 10/06/18 History multivitamin 1 tab PO DAILY 10/04/18 10/06/18 History acetaminophen [Tylenol Extra 1,000 mg PO Q6H PRN 10/06/18 10/06/18 History Strength] ondansetron HCl [Zofran] 4 mg PO QID PRN 10/06/18 10/06/18 History Patient History Medical History Renal colic (Acute) HTN (hypertension) (Chronic) Hypercholesteremia (Chronic) Kidney stone (Resolved) Left ureteral calculus (Acute) Surgical History H/O lithotripsy Left ESWL X 2. 09/04/2015 and 11/10/17: LMA #5 placed without complications Family History Other Hypertension Social History Current Living Situation: Spouse current occupational status: employed Other Information That Helps Us Care for You: No Feels Safe at Home: Yes Safety Concerns: Feels Safe At This Time Smoking Status: Never smoker Hx Alcohol Use: No Hx Substance Use: No Beliefs That Will Affect Care: None Preferred Language: Nauruan Communication Ability: Effective Hydrochloric Manufacturing Supervisor Required: No Review of Systems Constitutional: no fever and no chills Eyes: no blind spots Respiratory: no cough and no dyspnea Cardiovascular: no chest pain and no palpitations Gastrointestinal: + nausea and + vomiting Genitourinary (Male): + flank pain; no dysuria Musculoskeletal: + back pain; no swelling Integumentary: no rash Psychiatric: no behavioral changes Physical Exam 2 Vital Signs (Past 24 Hours): Last Vital Signs Temp 36.9 C 10/07/18 07:56 Pulse 83 10/07/18 07:56 Resp 17 10/07/18 07:56 BP 148/99 H 10/07/18 07:56 Pulse Ox 96 10/07/18 07:56 Physical Exam: NAD AAOx3 no resp distress RRR abd soft, minimally tender on the left flank - no lower extremity edema No rashes no adenopathy full ROM/muscular strength
[2018-10-07] MEDS ORDERED: fentaNYL citrate 100 MCG/2 ML VIAL ONE ×2 (13:47→14:54)
[2018-10-07] MEDS ORDERED: MIDAZOLAM HCL 1 MG/ML 2ML VIAL ONE (13:48)
[2018-10-07] MEDS ORDERED: CIPROFLOXACIN 400 MG/200 ML BAG IV STA (14:06)
[2018-10-07] MEDS ORDERED: fentaNYL citrate 100 MCG/2 ML VIAL IV PRN (14:09)
[2018-10-07] MEDS ORDERED: ePHEDrine sulfate 50 MG/ML AMP IV PRN (14:09)
[2018-10-07] MEDS ORDERED: PROMETHAZINE HCL 12.5 MG in SODIUM CHLORIDE 0.9% 50 ML IV PRN (14:09)
[2018-10-07] MEDS ORDERED: HYDROmorphone INJ 1 MG/ML SYRINGE IV PRN (14:09)
[2018-10-07] MEDS ORDERED: ONDANSETRON INJ 2 MG/ML 2 ML VIAL IV PRN (14:09)
[2018-10-07] MEDS ORDERED: ATROPINE SULFATE 0.1 MG/ML 5ML SYR IV PRN (14:09)
[2018-10-07] MEDS ORDERED: PHENYLEPHRINE 100MCG/ML 5ML SYR IV PRN (14:09)
[2018-10-07] MEDS ORDERED: IOTHALAMATE MEGLUMINE II 17.2% 250 ML VIAL ONE (14:24)
[2018-10-07] MEDS ORDERED: ePHEDrine sulfate 50 MG/ML SYR ONE (14:30)
[2018-10-07] MEDS ORDERED: LIDOCAINE HCL 2% MPF (LOCAL) 5 ML VIAL INFIL ONE (14:30)
[2018-10-07] MEDS ORDERED: ONDANSETRON INJ 2 MG/ML 2 ML VIAL ONE (14:30)
[2018-10-07] MEDS ORDERED: PROPOFOL IV EMULSION 10 MG/ML 20 ML VIAL IV ONE (14:30)
[2018-10-07] MEDS ORDERED: PHENYLEPHRINE 100MCG/ML 5ML SYR ONE (14:50)
[2018-10-07] MEDS ORDERED: PHENYLEPHRINE HCL 10 MG/ML VIAL ONE (14:51)
--- NOTE | 2018-10-07 15:09 | Operative Report ---
Post Operative Report Date of Surgery October 07, 2018 Pre & Post Diagnosis Operation Date: 10/07/18 12:00 Pre-Op Diagnosis: Left Nephrolithiasis Post-Op Diagnosis: Left Nephrolithiasis Procedure Operation Date: 10/07/18 12:00 Actual Procedures p Cystoscopy, Left Ureteroscopy, Laser Lithotripsy, Left Ureteral Stent Placement(Left) ([id number])- Josh Cheek MD Description of procedure: Patient was identified in the preoperative holding area, appropriate informed consents reviewed and completed and the patient was transported to the operating suite. Upon arrival he received appropriate preoperative antibiotics the form of ciprofloxacin. Adequate general anesthesia was achieved, he was placed in dorsal lithotomy position where he was sterilely prepped and draped in standard fashion. To begin the case I passed a 20 Slovak cystoscope per urethra. Inspection revealed no evidence of stricture disease. He is moderately enlarged prostate. Inspection of the bladder revealed healthy appearing bladder mucosa with a small yellow appearing calculus returning from the left ureteral orifice. Passed a wire into this orifice and the small fragment immediately was released as well as a price of off colored urine. The wire advanced the kidney without difficulty. Of note, his stones previously had been relatively easily visualized on x-ray, however on standard Intra-Op fluoroscopy they were not as easily appreciated. I then utilized a 10 Slovak double-lumen catheter to advance a second wire into the kidney. I then passed a flexible ureteroscope over the wire and performed a full renoscopy. Of note he has an extremely dilated lower pole with a very sharp angle. I was able to advance the scope into this and I did encounter one stone in the most dependent portion of this left lower pole. Utilizing a 270 m fiber I was able to fragment this. I then moved through the midpole in the upper pole I. 2 fragments in the upper pole. I fragmented both of the stones further until everything was deemed safe for spontaneous passage. I performed a careful exit ureteroscopy, encountered 2 stones at the UPJ. I started to treat the first and a portion of the seem to move retrograde into the lower pole of the kidney. I attempted to rukhsana this, however was unsuccessful and ultimately finding any large fragments. I did perform multiple repeat renoscopy identifying no other large stones in the upper mid pole, and I am uncertain how large the remaining fragment may be. I then continued my exit ureteroscopy successfully treating the second stone. I irrigated all the stone pieces out of the ureter and clear the remaining aspects of the ureter. I then placed a 6 Slovak by 26 cm double-J ureteral stent seeing a good curl in the kidney as well as the bladder. The case was ultimately concluded and the patient was activated taken to the PACU in stable condition. Surgeon Josh Cheek MD Washer Cutter none Estimated Blood Loss 0 Findings Consistent with Post-Op Diagnosis Specimens none I attest to the content of the Intraoperative Record and any orders documented therein. Any exceptions are noted below.
--- NOTE | 2018-10-07 15:18 | Fluoroscopy Report ---
FL KUB HISTORY: CYSTO IN OR FLUOROSCOPY TIME: 20 seconds. FINDINGS: Single fluoroscopic spot image of the left side of the abdomen demonstrate a left ureteral stent. The proximal visualized and appears in good position. IMPRESSION: Fluoroscopy provided for left ureteral stent placement. The visualized stent appears in good position.. Electronically signed by: Stephen Curtis M.D. 10/07/2018 3:17 PM
--- NOTE | 2018-10-07 15:51 | Anesthesiology Progress Note ---
Date of Service October 07, 2018 Anesthesia Post Procedure Vital Signs Vital Signs: Temp Pulse Pulse Pulse Resp BP BP 10/07/18 15:45 79 19 159/97 H 10/07/18 15:40 81 16 150/97 H 10/07/18 15:35 84 20 158/96 H 10/07/18 15:30 88 19 153/97 H 10/07/18 15:23 86 17 142/97 H 10/07/18 15:22 36.7 C 89 90 20 142/97 H 10/07/18 12:23 36.9 C 91 H 18 160/100 H 10/07/18 07:56 36.9 C 83 17 148/99 H 10/06/18 23:15 37.1 C 73 18 161/100 H 10/06/18 22:31 73 22 154/92 H 10/06/18 20:41 37.0 C 83 18 161/97 H Pulse Ox 10/07/18 15:45 96 10/07/18 15:40 97 10/07/18 15:35 99 10/07/18 15:30 100 10/07/18 15:23 100 10/07/18 15:22 100 10/07/18 12:23 98 10/07/18 07:56 96 10/06/18 23:15 98 10/06/18 22:31 98 10/06/18 20:41 98 Pain Intensity Right Abdomen: Pain Intensity: 2 Left Flank: Pain Intensity: 2 Penis: Pain Intensity: 0 Notes Mental Status: alert / awake / arousable Patient Amnestic to Procedure: Yes Nausea / Vomiting: adequately controlled Pain: adequately controlled Airway Patency, RR, SpO2: stable & adequate BP & HR: stable & adequate Hydration State: stable & adequate Anesthetic Complications: no major complications apparent
--- NOTE | 2018-10-07 16:12 | Hospitalist Progress Note ---
Date of Service October 07, 2018 Assessment & Plan (1) Left nephrolithiasis: (2) HTN (hypertension): (3) Acute kidney injury: (4) Renal colic: 47-year-old white male admitted on October 07, 2018 because of left kidney stone, Left nephrolithiasis: Accelerated HTN , will continue hold isinopril/HCTZ in setting of mild MERLIN, will give hydralazine as needed Patient is going to OR today for procedure by urologist, will continue follow-up Ppx - low risk for DVT. Code - FUll Subjective Doing fair, up and to the restroom, report minimal pain, denies dysuria, denies hematuria and is ready to go to operation room, Review of Systems Constitutional: Positive mild weakness, or fatigue Respiratory: no cough, sputum, wheezing, or dyspnea on exertion Cardiac: No chest pain, No orthopnea, No PND, No claudication, No palpitations , Abdomen: No pain, No nausea, No vomiting, No diarrhea, No constipation, No GI bleeding Musculoskeletal: No joint pain, No muscle pain, No swelling, No calf pain, No problem reported : See HPI, no incontinence, No hematuria Neurologic: No paralysis, No weakness, No numbness/tingling, No vertigo, No balance problems Psychiatric: No depression symptoms, No anhedonism, No anxiety, No insomnia, No substance abuse Heme: No abnormal bleeding/bruising, No clotting problems, No swollen lymph nodes, No night sweats Skin: No rash, No itch, No new/changing skin lesions, No color change, No bleeding Physical Exam 2 Vital Signs (Past 24 Hours): Last Vital Signs Temp 36.7 C 10/07/18 16:06 Pulse 82 10/07/18 16:00 Resp 25 H 10/07/18 15:58 BP 147/99 H 10/07/18 16:00 Pulse Ox 98 10/07/18 16:06 Physical Exam: General Appearance: WD/WN, no apparent distress, Eyes: normal inspection, PERRL, EOMI, sclerae normal ENT: normal ENT inspection, hearing grossly normal, pharynx normal Neck: supple, no adenopathy, thyroid normal, no JVD, no carotid bruits, trachea midline Respiratory/Chest: chest non-tender, normal breath sounds, no respiratory distress, no accessory muscle use, breath sounds, rales, wheezing Cardiovascular: regular rate, rhythm, no JVD, no murmur Abdomen: normal bowel sounds, non tender, soft, no organomegaly, Extremities: normal range of motion, non-tender, normal inspection, no pedal edema, no calf tenderness, normal capillary refill , pelvis stable, joint has no limited range of motion, capillary refill is normal, no cyanosis clubbing 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, no motor/sensory deficits, alert, normal mood/affect, oriented x 3 Skin: normal color, warm/dry, no rash Lymphatic: no adenopathy Results & Data Laboratory Results Laboratory Results - last 24 hr 10/06/18 10/06/18 10/06/18 21:00 21:00 21:00 WBC 12.54 H RBC 4.92 Hgb 14.2 Hct 40.8 L MCV 82.9 MCH 28.9 MCHC 34.8 RDW Std Deviation 39.0 RDW Coeff of Alley 13.0 Plt Count 245 MPV 10.0 Immature Gran % (Auto) 0.3 Neut % (Auto) 78.0 Lymph % (Auto) 13.1 [place] % (Auto) 7.9 Eos % (Auto) 0.6 Baso % (Auto) 0.1 Immature Gran # (Auto) 0.04 H Neut # (Auto) 9.78 H Lymph # (Auto) 1.64 [place] # (Auto) 0.99 H Eos # (Auto) 0.08 Baso # (Auto) 0.01 Sodium 135 L Potassium 3.4 L Chloride 101 Carbon Dioxide 24 Anion Gap 10.0 BUN 22 H Creatinine 2.00 H D Est Cr Clr Drug Dosing 53.0 Est GFR ( Amer) 44.1 Est GFR (Non-Af Amer) 38.1 BUN/Creatinine Ratio 11.0 Glucose 121 H Calcium 9.1 Phosphorus 2.5 Magnesium 2.3 Total Bilirubin 1.1 H D AST 14 L ALT 25 Alkaline Phosphatase 62 Troponin I < 0.015 Total Protein 8.2 Albumin 4.1 Globulin 4.1 H Albumin/Globulin Ratio 1.0 Lipase 132 Specimen Hemolysis Urine Color Yellow Urine Appearance Clear Urine pH 5.0 Ur Specific [place] 1.027 Urine Protein Negative Urine Glucose (UA) Negative Urine Ketones Trace H Urine Blood 2+ H Urine Nitrite Negative Urine Bilirubin Negative Urine Urobilinogen Negative Ur Leukocyte Esterase Negative Urine WBC (Auto) 1-5 Urine RBC (Auto) 5-10 H U Hyaline Cast (Auto) 0 U Epithel Cells (Auto) 0-5 Urine Bacteria (Auto) Negative 10/07/18 10/07/18 05:22 05:22 WBC 10.56 RBC 4.50 L Hgb 13.4 L Hct 37.6 L MCV 83.6 MCH 29.8 MCHC 35.6 RDW Std Deviation 39.0 RDW Coeff of [place] 13.0 Plt Count 206 MPV 9.8 Immature Gran % (Auto) 0.4 Neut % (Auto) 63.3 Lymph % (Auto) 24.5 [place] % (Auto) 10.1 Eos % (Auto) 1.6 Baso % (Auto) 0.1 Immature Gran # (Auto) 0.04 H Neut # (Auto) 6.68 H Lymph # (Auto) 2.59 [place] # (Auto) 1.07 H Eos # (Auto) 0.17 Baso # (Auto) 0.01 Sodium 140 Potassium 3.5 Chloride 105 Carbon Dioxide 25 Anion Gap 9.0 BUN 22 H Creatinine 1.79 H Est Cr Clr Drug Dosing 59.2 Est GFR ( Amer) 50.4 Est GFR (Non-Af Amer) 43.5 BUN/Creatinine Ratio 12.1 Glucose 87 Calcium 8.2 L Phosphorus Magnesium Total Bilirubin AST ALT Alkaline Phosphatase Troponin I Total Protein Albumin Globulin Albumin/Globulin Ratio Lipase Specimen Hemolysis Urine Color Urine Appearance Urine pH Ur Specific [place] Urine Protein Urine Glucose (UA) Urine Ketones Urine Blood Urine Nitrite Urine Bilirubin Urine Urobilinogen Ur Leukocyte Esterase Urine WBC (Auto) Urine RBC (Auto) U Hyaline Cast (Auto) U Epithel Cells (Auto) Urine Bacteria (Auto) _ (1) HTN (hypertension) Hypertension type: essential hypertension Qualified Code(s): I10 - Essential (primary) hypertension
[2018-10-07] MEDS ORDERED: ACETAMINOPHEN 325 MG TAB PO STA (16:39)
[2018-10-07] MEDS ORDERED: ACETAMINOPHEN SOL 650 MG/20.3 ML UDC PO PRN (16:47)
[2018-10-08] MEDS ORDERED: CIPROFLOXACIN 400 MG/200 ML BAG IV SCH ×2 (06:00)
[2018-10-08 06:11] LABS: Basophils # (auto) 0.03 K/uL (0-0.2); Basophils % (auto) 0.3 %; Eosinophils # (auto) 0.16 K/uL (0-0.5); Eosinophils % (auto) 1.8 %; Hematocrit (blood only) 39.9 % (42-52); Hemoglobin 14.4 g/dL (14.0-18.0); Immature Granulocytes # (auto) 0.03 K/uL (0.00-0.02); Immature Granulocytes % (auto) 0.3 %; Lymphocytes # (auto) 2.25 K/uL (1.2-3.4); Lymphocytes % (auto) 25.8 %; Mean Corpuscular Hgb Conc 36.1 g/dL (32-36); Mean Corpuscular Volume 83.3 fL (80-100); Mean Platelet Volume 9.7 fL (7.4-10.4); Monocytes # (auto) 0.67 K/uL (0.11-0.59); Monocytes % (auto) 7.7 %; Neutrophils # (auto) 5.58 K/uL (1.4-6.5); Neutrophils % (auto) 64.1 %; Platelet Count 218 K/uL (130-400); RDW Coefficient of Variation 12.7 % (11.5-14.5); RDW Standard Deviation 38.4 fL (36.4-46.3); Red Blood Count 4.79 M/uL (4.7-6.1); White Blood Count 8.72 K/uL (4.8-10.8)
[2018-10-08 06:45] LABS: Calcium 8.9 mg/dl (8.5-10.1); Creatinine Clr Calc Pharmacy 69.8 ml/min; Est GFR (African American) 61.5; Magnesium 2.2 mg/dl (1.8-2.4); Potassium 3.5 mmol/L (3.5-5.1)
[2018-10-08 06:46] LABS: Phosphorus 2.9 mg/dl (2.5-4.9)
--- NOTE | 2018-10-08 08:38 | Anesthesiology Progress Note ---
Date of Service October 08, 2018 Anesthesia Post Procedure Vital Signs Vital Signs: Temp Pulse Pulse Pulse Pulse Pulse Resp 10/08/18 07:54 36.6 C 86 14 10/08/18 03:32 37.1 C 81 16 10/07/18 23:04 36.8 C 81 16 10/07/18 20:35 36.8 C 78 22 10/07/18 19:26 36.8 C 68 20 10/07/18 18:13 36.7 C 78 20 10/07/18 17:12 36.8 C 75 20 10/07/18 16:45 36.8 C 77 20 10/07/18 16:17 37 C 81 81 20 10/07/18 16:06 36.7 C 10/07/18 16:00 82 10/07/18 15:58 84 25 H 10/07/18 15:55 82 20 10/07/18 15:50 84 18 10/07/18 15:45 79 19 10/07/18 15:40 81 16 10/07/18 15:35 84 20 10/07/18 15:30 88 19 10/07/18 15:23 86 17 10/07/18 15:22 36.7 C 89 90 20 10/07/18 12:23 36.9 C 91 H 18 BP BP BP Pulse Ox 10/08/18 07:54 160/110 H 160/110 H 96 10/08/18 03:32 148/98 H 97 10/07/18 23:04 153/98 H 97 10/07/18 20:35 158/98 H 96 10/07/18 19:26 171/97 H 98 10/07/18 18:13 163/109 H 98 10/07/18 17:12 153/98 H 99 10/07/18 16:45 166/104 H 97 10/07/18 16:17 166/96 H 96 10/07/18 16:06 98 10/07/18 16:00 147/99 H 96 10/07/18 15:58 97 10/07/18 15:55 97 10/07/18 15:50 148/97 H 96 10/07/18 15:45 159/97 H 96 10/07/18 15:40 150/97 H 97 10/07/18 15:35 158/96 H 99 10/07/18 15:30 153/97 H 100 10/07/18 15:23 142/97 H 100 10/07/18 15:22 142/97 H 100 10/07/18 12:23 160/100 H 98 Pain Intensity Right Abdomen: Pain Intensity: 2 Left Flank: Pain Intensity: 0 Penis: Pain Intensity: 0 Head: Pain Intensity: 6 Notes Mental Status: alert / awake / arousable and participated in evaluation Patient Amnestic to Procedure: Yes Nausea / Vomiting: adequately controlled Pain: adequately controlled Airway Patency, RR, SpO2: stable & adequate BP & HR: stable & adequate Hydration State: stable & adequate Anesthetic Complications: no major complications apparent and Pt Satisfied with anesthetic care
--- NOTE | 2018-10-08 08:39 | Urology Progress Note ---
Date of Service October 08, 2018 Assessment & Plan (1) Left nephrolithiasis: 47 YO male, POD #1 s/p cystoscopy, ureteroscopy, laser litho, left ureteral stent placement. Patient reports feeling much better. Cr is trending down. Appears to be tolerating his stent well. Discussed that we prefer to keep stent in place for 1-2 weeks to promote healing. I will arrange outpatient stent pull with Dr. Cheek. Patient can expect to hear from outpatient urology schedulers today or tomorrow with appointment time. Continue Flomax QHS while stent is in place, Tylenol PRN for pain control. Thank you for allowing us to participate in the care of this patient. Please contact our service with any additional questions or concerns. Subjective 47 YO male, POD #1 s/p cystoscopy, ureteroscopy, laser litho, left ureteral stent placement. Patient reports feeling much improved this AM. +"Achy" pain on left side. This is tolerable to patient. Denies nausea/vomiting. Denies fever/chills. +intermittent hematuria, no difficulty emptying bladder. Review of Systems All systems reviewed & are unremarkable except as noted in HPI & below Physical Exam 2 Vital Signs (Past 24 Hours): Last Vital Signs Temp 36.6 C 10/08/18 07:54 Pulse 86 10/08/18 07:54 Resp 14 10/08/18 07:54 BP 160/110 H 10/08/18 07:54 Pulse Ox 96 10/08/18 07:54 Constitutional: WD/WN, vitals as above Neck: normal visual inspection Respiratory: normal respiratory effort; no labored breathing and does not use accessory muscles Cardiovascular: Vessels: no JVD Gastrointestinal (Abdomen): Percussion/Palpation: abdomen soft; no guarding Genitourinary: bladder normal to palpation
--- NOTE | 2018-10-08 16:19 | Discharge Summary ---
Date of Service October 08, 2018 Admission HPI Patient is a 47yo C male with history of HTN, prior renal stones presenting with left sided abdominal pain and ureteral calculi. Patient was seen in the ER 2 nights ago with abdominal pain. CT was done at that time that showed moderate left sided hydroureteronephrosis secondary to three left ureteral calculi, largest of which was 6mm. He was given oxycodone and discharged home with plans to followup with Urology. Patient with worsening pain, nausea and some decreased UOP. He contacted Dr. Cheek and was instructed to come to the ER ER Course: Pepcid, Toradol, Morphine, Zofran , IVF Principal Diagnosis Principal Diagnosis Kidney stone Discharge Exam Constitutional WD/WN, vitals as above Neck normal visual inspection; neck extension not limited Respiratory normal respiratory effort; no labored breathing and does not use accessory muscles Auscultation: lungs clear to auscultation bilaterally Cardiovascular Rate/Rhythm: regular rate and regular rhythm Vessels: no JVD Gastrointestinal (Abdomen) Percussion/Palpation: abdomen soft; no guarding Psychiatric Orientation: alert and oriented x 3 Genitourinary bladder normal to palpation Discharge Data Allergies Allergy/AdvReac Type Severity Reaction Status Date / Time No Known Allergies Allergy Verified 10/06/18 21:28 Procedures Performed Operation Date: 10/07/18 12:00 Actual Procedures p Cystoscopy, Left Ureteroscopy, Laser Lithotripsy, Left Ureteral Stent Placement(Left) - Josh Cheek MD Ordered Studies 10/07/18 09:33 FL KUB Routine Hospital Course (1) Left nephrolithiasis: Underwent left stent placement with urology. Pain relieved, and Cr returned to baseline. Given 3 days of Cipro and Pyridium for some mild urethral burning. Given tamsulosin. Will follow up with urology for stent removal. (2) HTN (hypertension): Blood pressure elevated this admission, though lisinopril/HCTZ were held in setting of mild MERLIN. Started Flomax which may help slightly, and cleared to restart his home BP med per urology. Will follow up with PCP. (3) Acute kidney injury: Cr up to 2.0 on admission due to hydronephrosis, down to baseline (~1.5) on discharge. Total Time Total Time Spent Total Time Spent (In Minutes): 40 Total Time Includes: Examination of the Patient, Discharge Planning, Medication Reconciliation and Communication With Other Providers Discharge Plan Discharge Items Patient Disposition: Home - Self-Care Reason For Visit: UROLITHIASIS Discharge Diagnosis: Kidney stone with obstruction Condition: Good Discharge Goals: Decrease discomfort, Improve disease control and Improve function Activity: Resume your previous activity Non-emergency contact: Primary Care Provider and Urologist Call non-emergency contact if: you have any medication questions, your symptoms worsen, your pain is not controlled and your temperature is above 100.5 Follow-up/Referrals: Josh Cheek MD [Family Provider] - (Please wait for the urology office to call. If you don't hear anything by Monday, please call their office. They would like to see you in 10-14 days in the office.) Yung Mckinley DO [Primary Care Provider] - 10/10/18 10:00 am (An appointment has been made on your behalf. Please see Dr. Mckinley to monitor your blood pressure.) Diet: Regular Addtl Provider Instructions: Mr. Olmedo, You were admitted for a kidney stone. Dr. Cheek put in a stent which helps the urine flow around where the kidney stone was. We are giving you antibiotics and Flomax to help keep the urine flowing well and to keep any bacteria from causing an infection. We are also giving you something call Pyridium to help reduce the burning with urination. Please take all the antibiotics and Pyridium until they are gone (3 days of antibiotics, 2 days of Pyridium). Take the Flomax until you follow up with the urology doctors, and they say you can stop it. They would like to see you in 10- 14 days. Your blood pressure was slightly high in the hospital. You can take your blood pressure medication again, but please follow up with your PCP to be sure it goes back to normal. Please call the Urology Office if you have any fevers (temp > 100.5), worsening pain in your side, worsening pain when you urinate, nausea/vomiting, or other concerning issues. Prescriptions: New ciprofloxacin HCl [Cipro] 500 mg tablet 500 mg PO Q12H Qty: 6 RF: 0 tamsulosin [Flomax] 0.4 mg capsule 0.4 mg PO QPM Qty: 30 RF: 0 phenazopyridine [Pyridium] 100 mg tablet 100 mg PO Q8H 2 Days Qty: 6 RF: 0 Continue multivitamin Tablet 1 tab PO DAILY RF: 0 lisinopril-hydrochlorothiazide 10-12.5 mg Tablet 0.5 tab PO DAILY RF: 0 Lactobacillus acidophilus [Probiotic] 10 billion cell Capsule 2 tabs PO DAILY RF: 0 inulin [Fiber Gummies] 2 gram Tablet,Chewable 4 g PO DAILY RF: 0 Fish Oil Gummies 1 tab PO DAILY RF: 0 ondansetron HCl [Zofran] 4 mg Tablet 4 mg PO QID PRN (Reason: Nausea) RF: 0 acetaminophen [Tylenol Extra Strength] 500 mg Tablet 1,000 mg PO Q6H PRN (Reason: Pain) RF: 0 Visit Report Forms: [facility] Discharge Orders: Discharge Order (Routine); Ordered 10/08/18 Ordered By: Chris Mckinley Admission Data Admit Date/Time: 10/06/18 22:36 Attending Provider: Chris Mckinley Admit Provider: Margret Mccarthy Primary Care Provider: Yung Mckinley Other Providers: Margret Mccarthy ; Josh Cheek Service: Medical Other Interventions: Discharge Summary Assessment (RN) Last Done: 10/08/18 12:50 DC Date/Time DO NOT enter until pt leaves facility: 10/08/18 13:36
== END 2018-10-08 13:36 | disposition home or self-care (01) | DRG 669 ==
LOC: ED 20:39 → SUATTDRO 22:36 → 3E 22:36